=== PATIENT | male | born 1935 | race Caucasian/White ===

== ENCOUNTER 2022-03-01 10:28 | Inpatient (IN) ==
[2022-03-01 11:00] LABS: Basophils # 0.1 10*3/uL (0.0-0.2); Basophils % 0.7 % (0.0-0.8); Eosinophils # 0.1 10*3/uL (0.0-0.87); Eosinophils % 1.8 % (0.00-10.9); Hematocrit 37.9 VOL% (42.0-52.0); Immature Granulocytes % 0.6 %; Immature Granulocytes Absolute 0.04 #; Lymphocytes # 1.7 10*3/uL (1.4-4.0); Lymphocytes % 24.6 % (21.2-54.2); Mean Corpuscular HGB Conc 31.7 GM/DL (32-36); Mean Corpuscular Volume 100.5 FL (87-102); Mean Platelet Volume 9.9 FL (9.6-12.0); Monocytes # 0.5 10*3/uL (0.11-0.8); Neutrophils % 64.3 % (38.7-73.9); Platelet Count 162 T/CUMM (130-400); Red Blood Count 3.77 MC/CUMM (3.8-5.5); Red Cell Distribution Width 13.3 % (9.3-17.3); White Blood Count 6.8 T/CUMM (4-12)
[2022-03-01 11:26] LABS: Albumin 4.1 G/DL (3.4-5.0); Bilirubin,Total 0.7 MG/DL (0.20-1.00); Calcium 9.4 MG/DL (8.5-10.1); Osmolality,Calculated 284.1 MOS/KG (273-304); Potassium 3.7 MMOL/L (3.5-5.1)
[2022-03-01] MEDS ORDERED: ASPIRIN 325 MG TABLET PO STA (11:30)
[2022-03-01] MEDS ORDERED: NITROGLYCERIN SL 0.4 MG TABLET SL PRN (11:30)
[2022-03-01 11:42] LABS: Basophils # 0.1 10*3/uL (0.0-0.2); Basophils % 0.8 % (0.0-0.8); Eosinophils # 0.1 10*3/uL (0.0-0.87); Hematocrit 36.6 VOL% (42.0-52.0); Hemoglobin 11.8 GM/DL (14.0-18.0); Immature Granulocytes % 0.3 %; Immature Granulocytes Absolute 0.02 #; Lymphocytes # 1.6 10*3/uL (1.4-4.0); Lymphocytes % 25.7 % (21.2-54.2); Mean Corpuscular HGB Conc 32.2 GM/DL (32-36); Mean Corpuscular Volume 98.1 FL (87-102); Mean Platelet Volume 9.8 FL (9.6-12.0); Monocytes # 0.6 10*3/uL (0.11-0.8); Neutrophils % 62.2 % (38.7-73.9); Platelet Count 154 T/CUMM (130-400); Red Blood Count 3.73 MC/CUMM (3.8-5.5); Red Cell Distribution Width 13.3 % (9.3-17.3); White Blood Count 6.1 T/CUMM (4-12)
[2022-03-01 11:55] LABS: INR 1.2; PT Patient Result 12.7 SECS (10.1-12.1); Partial Thromboplastin Time 29.3 SECS (23.7-32.9)
[2022-03-01] MEDS ORDERED: CLOPIDOGREL 75 MG TABLET ONE (12:00)
[2022-03-01 12:02] LABS: Calcium 9.3 MG/DL (8.5-10.1); Osmolality,Calculated 282.3 MOS/KG (273-304); Potassium 3.7 MMOL/L (3.5-5.1)
[2022-03-01] MEDS ORDERED: CLOPIDOGREL 75 MG TABLET PO STA (12:09)
[2022-03-01] MEDS ORDERED: amLODIPine 5 MG TABLET PO STA (13:15)
[2022-03-01] MEDS ORDERED: ONDANSETRON 4 MG/2 ML VIAL IV PRN (14:31)
[2022-03-01] MEDS ORDERED: DEXTROSE 10% 250 ML BAG IV PRN (15:27)
[2022-03-01] MEDS ORDERED: GLUCAGON 1 MG VIAL IM PRN (15:27)
[2022-03-01] MEDS: hydrALAZINE 25 MG TABLET PO SCH ×2 (15:48→21:29)
[2022-03-01] MEDS: ENOXAPARIN 40 MG/0.4 ML SYRINGE SUBCUT SCH (15:50)
[2022-03-01] MEDS ORDERED: FUROSEMIDE 40 MG/4 ML VIAL IV SCH (16:00)
[2022-03-01] MEDS: INSULIN LISPRO 100 UNIT/ML SUBCUT SCH ×2 (16:54→21:29)
[2022-03-01] MEDS ORDERED: METOPROLOL TARTRATE 25 MG TABLET PO SCH (21:00)
[2022-03-01] MEDS: OMEGA 3 ACID ETHYL ESTERS 1 GM CAPSULE PO SCH (21:28)
[2022-03-01] MEDS: TAMSULOSIN 0.4 MG CAPSULE PO SCH (21:28)
[2022-03-02 06:05] LABS: Basophils % 0.7 % (0.0-0.8); Eosinophils # 0.2 10*3/uL (0.0-0.87); Eosinophils % 3.3 % (0.00-10.9); Hematocrit 35.8 VOL% (42.0-52.0); Hemoglobin 11.5 GM/DL (14.0-18.0); Immature Granulocytes % 0.4 %; Immature Granulocytes Absolute 0.02 #; Lymphocytes # 1.6 10*3/uL (1.4-4.0); Mean Corpuscular HGB Conc 32.1 GM/DL (32-36); Mean Corpuscular Volume 98.1 FL (87-102); Mean Platelet Volume 10.6 FL (9.6-12.0); Monocytes # 0.6 10*3/uL (0.11-0.8); Monocytes % 10.5 % (1.7-12.7); Neutrophils % 56.1 % (38.7-73.9); Platelet Count 158 T/CUMM (130-400); Red Blood Count 3.65 MC/CUMM (3.8-5.5); Red Cell Distribution Width 13.2 % (9.3-17.3); White Blood Count 5.5 T/CUMM (4-12)
[2022-03-02 06:40] LABS: Potassium 3.2 MMOL/L (3.5-5.1); Risk Ratio 2.82; Thyroid Stimulating Hormone 2.66 uIU/ml (0.358-3.74); VLDL Cholesterol 19.4 MG/DL
[2022-03-02] MEDS ORDERED: LOSARTAN 25 MG TABLET PO SCH (09:00)
[2022-03-02] MEDS: hydrALAZINE 25 MG TABLET PO SCH ×3 (09:54→21:05)
[2022-03-02] MEDS: OMEGA 3 ACID ETHYL ESTERS 1 GM CAPSULE PO SCH ×2 (09:55→21:05)
[2022-03-02] MEDS: PANTOPRAZOLE 40 MG TABLET PO SCH (09:55)
[2022-03-02] MEDS: DAPAGLIFLOZIN 10 MG TABLET PO SCH (09:55)
[2022-03-02] MEDS: sitaGLIPtin 100 MG TABLET PO SCH (09:55)
[2022-03-02] MEDS: ASPIRIN EC 81 MG TABLET PO SCH (09:55)
[2022-03-02] MEDS: amLODIPine 10 MG TABLET PO SCH (09:55)
[2022-03-02] MEDS: INSULIN LISPRO 100 UNIT/ML SUBCUT SCH ×4 (09:55→21:13)
[2022-03-02] MEDS: FUROSEMIDE 40 MG/4 ML VIAL IV SCH (09:55)
[2022-03-02] MEDS: CLOPIDOGREL 75 MG TABLET PO SCH (09:55)
[2022-03-02] MEDS: ROSUVASTATIN 20 MG TABLET PO SCH (09:55)
[2022-03-02] MEDS: ENOXAPARIN 40 MG/0.4 ML SYRINGE SUBCUT SCH (16:25)
[2022-03-02] MEDS ORDERED: IBUPROFEN 200 MG TABLET PO ONE (17:47)
[2022-03-02] MEDS: TAMSULOSIN 0.4 MG CAPSULE PO SCH (21:05)
[2022-03-03] MEDS: INSULIN LISPRO 100 UNIT/ML SUBCUT SCH ×4 (07:39→21:21)
[2022-03-03] MEDS ORDERED: POTASSIUM BICARB EFFERVESCENT 20 MEQ TAB.EFF PER TUBE PRN (07:59)
[2022-03-03 08:34] LABS: Calcium 9.6 MG/DL (8.5-10.1); Osmolality,Calculated 280.5 MOS/KG (273-304); Potassium 3.5 MMOL/L (3.5-5.1)
[2022-03-03] MEDS ORDERED: CLORAZEPATE 3.75 MG TABLET PO ONE (09:31)
[2022-03-03] MEDS: PANTOPRAZOLE 40 MG TABLET PO SCH (09:46)
[2022-03-03] MEDS: sitaGLIPtin 100 MG TABLET PO SCH (09:46)
[2022-03-03] MEDS: ROSUVASTATIN 20 MG TABLET PO SCH (09:46)
[2022-03-03] MEDS: CLOPIDOGREL 75 MG TABLET PO SCH (09:46)
[2022-03-03] MEDS: ASPIRIN EC 81 MG TABLET PO SCH (09:46)
[2022-03-03] MEDS: amLODIPine 10 MG TABLET PO SCH (09:46)
[2022-03-03] MEDS: DAPAGLIFLOZIN 10 MG TABLET PO SCH (09:46)
[2022-03-03] MEDS: POTASSIUM CHLORIDE 20 MEQ TABLET PO PRN ×3 (09:46→16:30)
[2022-03-03] MEDS: hydrALAZINE 25 MG TABLET PO SCH ×4 (09:46→21:17)
[2022-03-03] MEDS: FUROSEMIDE 40 MG/4 ML VIAL IV SCH (09:51)
[2022-03-03] MEDS: OMEGA 3 ACID ETHYL ESTERS 1 GM CAPSULE PO SCH ×2 (10:06→21:18)
[2022-03-03] MEDS ORDERED: MAGNESIUM SULF RIDER 2 GM/50 ML PREMIX IV PRN (11:21)
[2022-03-03] MEDS ORDERED: POTASSIUM CHLORIDE RIDER 10 MEQ/100 ML PREMIX IV PRN (11:21)
[2022-03-03] MEDS: CLORAZEPATE 3.75 MG TABLET PO PRN ×2 (16:30→21:17)
[2022-03-03] MEDS: TAMSULOSIN 0.4 MG CAPSULE PO SCH (21:18)
[2022-03-04 05:59] LABS: Basophils # 0.1 10*3/uL (0.0-0.2); Eosinophils # 0.2 10*3/uL (0.0-0.87); Eosinophils % 3.1 % (0.00-10.9); Hematocrit 39.1 VOL% (42.0-52.0); Hemoglobin 12.8 GM/DL (14.0-18.0); Immature Granulocytes % 0.5 %; Immature Granulocytes Absolute 0.03 #; Lymphocytes # 1.8 10*3/uL (1.4-4.0); Lymphocytes % 29.5 % (21.2-54.2); Mean Corpuscular HGB Conc 32.7 GM/DL (32-36); Mean Corpuscular Volume 96.5 FL (87-102); Mean Platelet Volume 9.8 FL (9.6-12.0); Monocytes # 0.8 10*3/uL (0.11-0.8); Monocytes % 13.3 % (1.7-12.7); Neutrophils % 52.6 % (38.7-73.9); Platelet Count 166 T/CUMM (130-400); Red Blood Count 4.05 MC/CUMM (3.8-5.5); Red Cell Distribution Width 13.2 % (9.3-17.3); White Blood Count 6.1 T/CUMM (4-12)
[2022-03-04 06:18] LABS: Calcium 9.3 MG/DL (8.5-10.1); Osmolality,Calculated 277.8 MOS/KG (273-304); Potassium 3.2 MMOL/L (3.5-5.1)
[2022-03-04] MEDS ORDERED: HEPARIN/NACL 0.9% 2 UNITS/ML 2,000 UNIT/1,000 ML BAG IV ONE (06:45)
[2022-03-04] MEDS ORDERED: diphenhydrAMINE CAP 50 MG CAPSULE PO ONE (07:00)
[2022-03-04] MEDS ORDERED: DIAZEPAM 5 MG TABLET PO ONE (07:00)
[2022-03-04] MEDS: CLOPIDOGREL 75 MG TABLET PO SCH ×2 (07:18→10:37)
[2022-03-04] MEDS: ASPIRIN EC 81 MG TABLET PO SCH ×2 (07:19→10:36)
[2022-03-04] MEDS ORDERED: POTASSIUM CHLORIDE 20 MEQ TABLET PO ONE (08:19)
[2022-03-04] MEDS: INSULIN LISPRO 100 UNIT/ML SUBCUT SCH ×4 (08:45→22:09)
[2022-03-04] MEDS ORDERED: SODIUM CHLORIDE 0.9% 1,000 ML IV SCH (10:00)
[2022-03-04] MEDS: DAPAGLIFLOZIN 10 MG TABLET PO SCH (10:34)
[2022-03-04] MEDS: hydrALAZINE 25 MG TABLET PO SCH ×3 (10:35→22:08)
[2022-03-04] MEDS: amLODIPine 10 MG TABLET PO SCH (10:35)
[2022-03-04] MEDS: PANTOPRAZOLE 40 MG TABLET PO SCH (10:36)
[2022-03-04] MEDS: OMEGA 3 ACID ETHYL ESTERS 1 GM CAPSULE PO SCH ×2 (10:36→22:09)
[2022-03-04] MEDS: ROSUVASTATIN 20 MG TABLET PO SCH (10:41)
[2022-03-04] MEDS: sitaGLIPtin 100 MG TABLET PO SCH (10:41)
[2022-03-04] MEDS: TAMSULOSIN 0.4 MG CAPSULE PO SCH (22:08)
[2022-03-05 05:02] LABS: Basophils # 0.1 10*3/uL (0.0-0.2); Basophils % 0.6 % (0.0-0.8); Eosinophils # 0.2 10*3/uL (0.0-0.87); Eosinophils % 2.9 % (0.00-10.9); Hematocrit 42.5 VOL% (42.0-52.0); Hemoglobin 13.6 GM/DL (14.0-18.0); Immature Granulocytes % 0.4 %; Immature Granulocytes Absolute 0.03 #; Lymphocytes # 1.8 10*3/uL (1.4-4.0); Lymphocytes % 23.3 % (21.2-54.2); Mean Corpuscular Volume 97.7 FL (87-102); Mean Platelet Volume 9.5 FL (9.6-12.0); Monocytes # 0.9 10*3/uL (0.11-0.8); Monocytes % 11.3 % (1.7-12.7); Neutrophils % 61.5 % (38.7-73.9); Platelet Count 179 T/CUMM (130-400); Red Blood Count 4.35 MC/CUMM (3.8-5.5); Red Cell Distribution Width 13.2 % (9.3-17.3); White Blood Count 7.9 T/CUMM (4-12)
[2022-03-05 05:35] LABS: Calcium 9.3 MG/DL (8.5-10.1); Osmolality,Calculated 282.4 MOS/KG (273-304); Potassium 3.6 MMOL/L (3.5-5.1)
[2022-03-05] MEDS: ASPIRIN EC 81 MG TABLET PO SCH (09:26)
[2022-03-05] MEDS: DAPAGLIFLOZIN 10 MG TABLET PO SCH (09:26)
[2022-03-05] MEDS: sitaGLIPtin 100 MG TABLET PO SCH (09:27)
[2022-03-05] MEDS: amLODIPine 10 MG TABLET PO SCH (09:27)
[2022-03-05] MEDS: ROSUVASTATIN 20 MG TABLET PO SCH (09:27)
[2022-03-05] MEDS: PANTOPRAZOLE 40 MG TABLET PO SCH (09:27)
[2022-03-05] MEDS: OMEGA 3 ACID ETHYL ESTERS 1 GM CAPSULE PO SCH ×2 (09:28→21:50)
[2022-03-05] MEDS: INSULIN LISPRO 100 UNIT/ML SUBCUT SCH ×4 (09:29→21:50)
[2022-03-05] MEDS ORDERED: MAGNESIUM HYDROXIDE SUSP 30 ML UDCUP PO ONE (10:40)
[2022-03-05] MEDS: LACTULOSE 20 GM/30 ML UDCUP PO PRN ×2 (14:27→21:47)
[2022-03-05] MEDS: TAMSULOSIN 0.4 MG CAPSULE PO SCH (21:47)
[2022-03-05] MEDS: DOCUSATE SODIUM 100 MG CAPSULE PO SCH (21:47)
[2022-03-06 05:25] LABS: Basophils # 0.1 10*3/uL (0.0-0.2); Basophils % 0.7 % (0.0-0.8); Eosinophils # 0.2 10*3/uL (0.0-0.87); Eosinophils % 3.3 % (0.00-10.9); Hematocrit 39.5 VOL% (42.0-52.0); Hemoglobin 12.7 GM/DL (14.0-18.0); Immature Granulocytes % 0.4 %; Immature Granulocytes Absolute 0.03 #; Lymphocytes # 1.7 10*3/uL (1.4-4.0); Lymphocytes % 25.1 % (21.2-54.2); Mean Corpuscular HGB Conc 32.2 GM/DL (32-36); Mean Corpuscular Volume 97.5 FL (87-102); Mean Platelet Volume 9.7 FL (9.6-12.0); Monocytes # 0.7 10*3/uL (0.11-0.8); Monocytes % 10.4 % (1.7-12.7); Neutrophils % 60.1 % (38.7-73.9); Platelet Count 176 T/CUMM (130-400); Red Blood Count 4.05 MC/CUMM (3.8-5.5); Red Cell Distribution Width 13.2 % (9.3-17.3); White Blood Count 6.8 T/CUMM (4-12)
[2022-03-06 05:48] LABS: Calcium 9.2 MG/DL (8.5-10.1); Osmolality,Calculated 285.3 MOS/KG (273-304); Potassium 3.7 MMOL/L (3.5-5.1)
[2022-03-06] MEDS: INSULIN LISPRO 100 UNIT/ML SUBCUT SCH ×4 (08:09→20:50)
[2022-03-06] MEDS: OMEGA 3 ACID ETHYL ESTERS 1 GM CAPSULE PO SCH ×2 (08:09→20:50)
[2022-03-06] MEDS ORDERED: MAGNESIUM HYDROXIDE SUSP 30 ML UDCUP PO ONE (09:36)
[2022-03-06] MEDS: amLODIPine 10 MG TABLET PO SCH (09:39)
[2022-03-06] MEDS: ASPIRIN EC 81 MG TABLET PO SCH (09:39)
[2022-03-06] MEDS: DAPAGLIFLOZIN 10 MG TABLET PO SCH (09:39)
[2022-03-06] MEDS: sitaGLIPtin 100 MG TABLET PO SCH (09:39)
[2022-03-06] MEDS: ROSUVASTATIN 20 MG TABLET PO SCH (09:40)
[2022-03-06] MEDS: PANTOPRAZOLE 40 MG TABLET PO SCH (10:06)
[2022-03-06] MEDS ORDERED: diphenhydrAMINE CAP 50 MG CAPSULE PO ONE (12:00)
[2022-03-06] MEDS ORDERED: DIAZEPAM 5 MG TABLET PO ONE (12:00)
[2022-03-06] MEDS ORDERED: ceFAZolin 1,000 MG VIAL IRRIG ONE (12:15)
[2022-03-06] MEDS: DOCUSATE SODIUM 100 MG CAPSULE PO SCH ×2 (15:42→20:49)
[2022-03-06] MEDS ORDERED: MIDAZOLAM 2 MG/2 ML VIAL ONE (15:59)
[2022-03-06] MEDS ORDERED: fentaNYL 100 MCG/2 ML VIAL ONE (15:59)
[2022-03-06] MEDS ORDERED: HEPARIN/NACL 0.9% 2 UNITS/ML 1,000 UNIT/500 ML BAG IV ONE (15:59)
[2022-03-06] MEDS ORDERED: ceFAZolin 1,000 MG VIAL ONE (16:07)
[2022-03-06] MEDS: POLYETHYLENE GLYCOL POWDER 17 GM PACK PO SCH (18:22)
[2022-03-06] MEDS: TAMSULOSIN 0.4 MG CAPSULE PO SCH (20:49)
[2022-03-07 04:50] LABS: Basophils # 0.1 10*3/uL (0.0-0.2); Basophils % 0.7 % (0.0-0.8); Eosinophils # 0.2 10*3/uL (0.0-0.87); Eosinophils % 2.5 % (0.00-10.9); Hematocrit 41.2 VOL% (42.0-52.0); Hemoglobin 13.1 GM/DL (14.0-18.0); Immature Granulocytes % 0.3 %; Immature Granulocytes Absolute 0.02 #; Lymphocytes # 1.6 10*3/uL (1.4-4.0); Lymphocytes % 22.7 % (21.2-54.2); Mean Corpuscular HGB Conc 31.8 GM/DL (32-36); Mean Corpuscular Volume 97.6 FL (87-102); Mean Platelet Volume 9.7 FL (9.6-12.0); Monocytes # 0.6 10*3/uL (0.11-0.8); Monocytes % 8.2 % (1.7-12.7); Neutrophils % 65.6 % (38.7-73.9); Platelet Count 163 T/CUMM (130-400); Red Blood Count 4.22 MC/CUMM (3.8-5.5); Red Cell Distribution Width 13.1 % (9.3-17.3); White Blood Count 6.9 T/CUMM (4-12)
[2022-03-07 05:28] LABS: Calcium 9.3 MG/DL (8.5-10.1); Osmolality,Calculated 278.7 MOS/KG (273-304)
[2022-03-07] MEDS ORDERED: MAGNESIUM HYDROXIDE SUSP 30 ML UDCUP PO ONE (08:25)
[2022-03-07 08:29] VITALS: BP 133/73
[2022-03-07] MEDS: ASPIRIN EC 81 MG TABLET PO SCH (08:37)
[2022-03-07] MEDS: DOCUSATE SODIUM 100 MG CAPSULE PO SCH (08:37)
[2022-03-07] MEDS: DAPAGLIFLOZIN 10 MG TABLET PO SCH (08:37)
[2022-03-07] MEDS: sitaGLIPtin 100 MG TABLET PO SCH (08:38)
[2022-03-07] MEDS: amLODIPine 10 MG TABLET PO SCH (08:38)
[2022-03-07] MEDS: POLYETHYLENE GLYCOL POWDER 17 GM PACK PO SCH (08:38)
[2022-03-07] MEDS: PANTOPRAZOLE 40 MG TABLET PO SCH (08:38)
[2022-03-07] MEDS: ROSUVASTATIN 20 MG TABLET PO SCH (08:38)
[2022-03-07] MEDS: OMEGA 3 ACID ETHYL ESTERS 1 GM CAPSULE PO SCH (08:43)
[2022-03-07] MEDS: INSULIN LISPRO 100 UNIT/ML SUBCUT SCH (09:53)
== END 2022-03-07 11:48 | disposition home or self-care (01) | DRG 242 ==
LOC: N.EDINP 10:28 → N.ED 10:28 → N.TELEN 16:42 → SUATTDRO 03-02 15:01
PROVIDERS: ADMIT Emergency Medicine; ATTEND Internal Medicine